=== PATIENT | female | born 1985 | race Caucasian/White ===

== ENCOUNTER 2024-03-01 15:24 | Emergency (ER) | payer OTHER ==
[~2024-03-01] VITALS: Ht 154.9 cm; Wt 63.5 kg
[2024-03-01 15:27] VITALS: BP_SYST 118; PULSE 84; RESP 18; TEMP 97.6; O2SAT 97
== END 2024-03-01 15:49 ==
LOC: SED 15:24
DX: Z02.89 Encounter for other administrative examinations (principal)
CPT/HCPCS: 99283